=== PATIENT | male | born 1995 | race Caucasian/White ===

== ENCOUNTER 2018-11-06 01:17 | Emergency (ER) | payer SELFPAY, OTHER ==
[2018-11-06] MEDS ORDERED: morphine 4 MG/ML VIAL (01:21)
[2018-11-06] MEDS ORDERED: ONDANSETRON 4 MG INJ (01:21)
[2018-11-06] MEDS: ONDANSETRON 4 MG INJ IV (01:23)
[2018-11-06] MEDS: morphine 4 MG/ML VIAL IV (01:23)
[2018-11-06] MEDS: SOD CHLORIDE 0.9% 1,000 ML IV (01:27)
[2018-11-06] MEDS ORDERED: CEFAZOLIN 1 GM/50 ML (PMX) 50 ML IVPB (01:30)
[2018-11-06] MEDS ORDERED: DIPHTH/TET/ACEL PERTUSS (ADULT) 0.5 ML VIAL IM* (01:30)
[2018-11-06 01:33] LABS: ADD MAN DIFF? NO
[2018-11-06 01:34] LABS: WHITE BLOOD COUNT 12.2 10^3/ul (4.8-10.8)
[2018-11-06 01:34] LABS: BASOPHIL # 0.1 10^3/ul (0.0-0.1); BASOPHILS % 0.6 % (0.0-2.0); EOSINOPHILS # 0.4 10^3/ul (0.0-0.5); EOSINOPHILS % 3.3 % (0.0-7.0); HEMATOCRIT 44.8 % (42.0-52.0); HEMOGLOBIN 14.6 g/dl (14.0-18.0); MEAN CORPUSCULAR HEMOGLOBIN 27.2 pg (29.0-33.0); MEAN CORPUSCULAR HGB CONC 32.6 g/dl (32.0-37.0); MEAN CORPUSCULAR VOLUME 83.6 fl (82.0-101.0); MEAN PLATELET VOLUME 10.1 fl (7.4-10.4); MONOCYTE # 0.7 10^3/ul (0.3-0.9); MONOCYTES % 5.4 % (0.0-11.0); NEUTROPHIL # 6.9 10^3/ul (1.6-7.5); NEUTROPHILS % 56.8 % (39.0-77.0); PLATELET COUNT 324 10^3/UL (140-415); RED BLOOD COUNT 5.36 10^6/ul (4.70-6.10); RED CELL DISTRIBUTION WIDTH 13.2 % (11.5-14.5)
[2018-11-06 01:53] LABS: INR 0.89; PROTIME 12.2 Sec (11.9-14.9)
[2018-11-06 01:54] LABS: ANION GAP 12 (5-13); BLOOD UREA NITROGEN 8 mg/dl (7-20); CALCIUM 9.3 mg/dl (8.4-10.2); CARBON DIOXIDE 24 mmol/L (21-31); CHLORIDE 104 mmol/L (97-110); CREATININE 0.84 mg/dl (0.61-1.24); Estimated GFR > 60 mL/min (>60); GLUCOSE 139 mg/dl (70-220); POTASSIUM 3.7 mmol/L (3.5-5.1); SODIUM 140 mmol/L (135-144)
== END 2018-11-06 13:44 | disposition short-term general hospital (02) ==
LOC: E/R 01:17
DX: S89.92XA Unspecified injury of left lower leg, initial encounter (principal); S49.92XA Unspecified injury of left shoulder and upper arm, initial encounter; V03.10XA Pedestrian on foot injured in collision with car, pick-up truck or van in traffic accident, initial encounter
CPT/HCPCS: 36415; 80048; 80307; 85025; 85610; 85730; 86850; 86900; 86901; 96374; 96375; 99285-25